=== PATIENT | male | born 1975 | race Caucasian/White ===

== ENCOUNTER → 2022-03-21 | Emergency (ER) | payer BC ==
[~2022-03-21] VITALS: Ht 177.8 cm; Wt 106.6 kg
[2022-03-21 18:16] VITALS: BP_SYST 152
== END | disposition home or self-care (01) ==
LOC: SED 17:33
DX: S10.93XA Contusion of unspecified part of neck, initial encounter (principal); R51.9 Headache, unspecified; Z79.899 Other long term (current) drug therapy; V49.40XA Driver injured in collision with unspecified motor vehicles in traffic accident, initial encounter; Y93.89 Activity, other specified; Y92.89 Other specified places as the place of occurrence of the external cause; Y99.8 Other external cause status
CPT/HCPCS: 72040-TC; 99283